=== PATIENT | male | born 1975 | race Caucasian/White ===

== ENCOUNTER 2019-10-24 11:01 | Outpatient (CLI) | payer BC, SELFPAY ==
[2019-10-24 11:46] LABS: Alanine Aminotransferase 40 U/L (4-50); Alkaline Phosphatase 42 U/L (38-126); Aspartate Amino Transferase 35 U/L (17-59); Bilirubin,Total 0.5 mg/dL (0.2-1.3); Blood Urea Nitrogen 18 mg/dL (9-20); Calcium 9.4 mg/dL (8.4-10.2); Carbon Dioxide 26 mmol/L (22-30); Chloride 103 mmol/L (98-107); Cholesterol 174 mg/dL (0-200); Estimated Glomerular Filt Rate > 60; Glucose 113 mg/dL (75-110); HDL Direct 46 mg/dL; Sodium 139 mmol/L (137-145); Triglycerides 233 mg/dL (<150)
[2019-10-24 11:57] LABS: LDL Cholesterol Direct 79 mg/dL
== END 2019-10-24 11:02 | disposition home or self-care (01) ==
LOC: ANHLAB 11:04
PROVIDERS: PCP Family Medicine; Visit Provider Internal Medicine Cardiovascular Disease
DX: R79.89 Other specified abnormal findings of blood chemistry (principal); E78.2 Mixed hyperlipidemia
CPT/HCPCS: 36415; 80053; 80061

== ENCOUNTER 2020-10-03 02:52 | Inpatient (IN) | payer BC, SELFPAY ==
[2020-10-03] VITALS (8 sets, daily range): BP systolic 121–141; BP diastolic 71–94; PULSE 88–100; RESP 12–20; TEMP 35.9–37.2; O2SAT 94–100; BMI 28.8
--- NOTE | ~2020-10-03 | XR_ITS ---
EXAMINATION: XR sm bowel follow through DATE: 10/05/2020 14:30 INDICATION: Small bowel obstruction versus enteritis TECHNIQUE: Oral contrast was administered, and sequential radiographs of the abdomen were obtained un til oral contrast was noted to be in the proximal colon. Spot fluoroscopic images of the small bowel were obtained. Fluoroscopy exposure time was 1.1 minutes. The DAP for this procedure was 3.9 Gycm2. COMPARISON: None. FINDINGS: Transit time from the stomach to proximal colon was approximately 90 minutes. The proximal and mid small bowel is mildly dilated. The distal small bowel is normal in caliber. Terminal ileum is normal. No tethering or abnormal mass effect observed upon the small bowel with real-time fluorosco py. IMPRESSION: 1. Mildly dilated proximal small bowel with normal caliber distal small bowel suggestive of partial o bstruction. Reviewed, dictated and finalized at location A. IMPRESSION: 1. Mildly dilated proximal small bowel with normal caliber distal small bowel s uggestive of partial obstruction.
--- NOTE | ~2020-10-03 | XR_ITS ---
EXAMINATION: XR abdomen obstructive series DATE: 10/04/2020 06:19 INDICATION: Partial small bowel obstruction TECHNIQUE: Frontal supine and upright views of the abdomen were obtained. COMPARISON: CT dated 10/03/2020 FINDINGS: There is a single mildly dilated gas-filled loop of small bowel in the left abdomen with gas scattere d throughout multiple additional nondilated loops of small bowel in the mid and right abdomen. There is also a small amount of gas scattered throughout the colon. No free intraperitoneal gas. Lung bases are clear. Heart size is normal. IMPRESSION: 1. Single mildly dilated loops of gas-filled small bowel in the left abdomen consistent with improvi ng ileus versus less likely improving small bowel obstruction. Reviewed, dictated and finalized at location A. IMPRESSION: 1. Single mildly dilated loops of gas-filled small bowel in the left abdomen c onsistent with improving ileus versus less likely improving small bowel obstruc tion.
--- NOTE | ~2020-10-03 | CT_ITS ---
EXAMINATION: CT abdomen pelvis w con DATE: 10/03/2020 04:19 INDICATION: Abdominal pain TECHNIQUE: Computed tomography (CT) of the abdomen and pelvis was performed with 100 cc Omnipaque 350 intravenous contrast. The dose-length product was 1192.44 mGy-cm. Automated exposure control and ite rative reconstruction technique were employed. COMPARISON: CT dated 08/15/2012. FINDINGS: Dependent atelectasis right lower lobe. Otherwise, lung bases unremarkable. Heart size norm al. No significant pleural or pericardial effusion. No significant vascular abnormality. No lymphaden opathy. Fatty infiltration of the liver. The spleen, pancreas, adrenal glands are unremarkable. There is a sm all left renal cyst. Nonobstructing right nephrolithiasis. There is small bowel obstruction with transition in the right lower quadrant. Exact transition site n ot identified. There is interloop fluid. No evidence for bowel perforation. The spleen, pancreas, adrenal glands are unremarkable. IMPRESSION: 1. Small bowel obstruction with transition in the right lower quadrant. Interloop fluid is identified , although no evidence for perforation. 2: Hepatic steatosis. 3: Nonobstructing right nephrolithiasis. Reviewed, dictated and finalized at location B. IMPRESSION: 1. Small bowel obstruction with transition in the right lower quadrant. Interlo op fluid is identified, although no evidence for perforation. 2: Hepatic steatosis. 3: Nonobstructing right nephrolithiasis.
--- NOTE | ~2020-10-03 | XR_ITS ---
XR abdomen obstructive series 10/05/2020 11:22 Indication: Follow-up small bowel dilation Procedure: Supine and upright views of the abdomen Comparison: 12/04/2020 Findings: There are mildly dilated small bowel loops in the left upper abdomen. The remainder of the bowel is decompressed. No abnormal calcifications. No significant bone or joint abnormality. Impression: 1: Dilated small bowel left upper abdomen with air-fluid levels, ileus versus partial obstruction. Reviewed, dictated and finalized at location B. Impression: 1: Dilated small bowel left upper abdomen with air-fluid levels, ileus versus p artial obstruction.
--- NOTE | 2020-10-03 03:14 | ED.ABDPAIN ---
HPI - Abdominal Pain General Chief Complaint: Abdominal Pain Stated Complaint: abd pain Time Seen by Provider: 10/03/20 03:13 Source: patient Mode of arrival: ambulatory Limitations: no limitations History of Present Illness HPI narrative: Patient is a 44-year-old male complaining of abdominal pain, diffuse, 8 out of 10, dull, nonradiating accompanied by nausea, vomiting, diarrhea that started 3 days ago. Patient describes his vomitus is nonbilious nonbloody. His diarrhea is loose watery, nonbloody. Patient denies any fever or chills. Patient denies any chest pain or shortness of breath. Related Data Allergies Allergy/AdvReac Type Severity Reaction Status Date / Time No Known Allergies Allergy Verified 10/03/20 03:24 Review of Systems Review of Systems: All systems reviewed & are unremarkable except as noted in HPI and below Constitutional: Constitutional: Denies body ache(s), Denies chills, Denies excessive sweating, Denies fatigue, Denies fever(s), Denies headache(s), Denies lethargy, Denies malaise, Denies weakness and Denies weight loss Eyes: Eyes: Denies blurry vision, Denies change in vision and Denies loss of vision ENT: Denies dizziness, Denies ear discharge, Denies headache(s), Denies lip swelling, Denies epistaxis, Denies nasal congestion, Denies neck pain, Denies throat swelling and Denies tongue swelling Cardiovascular: Cardiovascular: Denies chest pain, Denies chest pain at rest, Denies chest pain with activity, Denies diaphoresis, Denies rapid heart rate, Denies edema, Denies irregular heart rhythm, Denies lightheadedness, Denies palpitations, Denies dyspnea and Denies dyspnea on exertion Respiratory: Respiratory: Denies chest congestion, Denies cough, Denies hemoptysis, Denies dyspnea and Denies dyspnea on exertion Gastrointestinal: Gastrointestinal: Denies melena, Denies hematochezia and Denies hematemesis Musculoskeletal: Musculoskeletal: Denies abnormal gait, Denies deformity, Denies joint swelling, Denies limited range of motion, Denies neck pain and Denies numbness Neurologic: Denies Abnormal speech present, Denies abnormal gait, Denies confusion, Denies dizziness, Denies headache(s), Denies focal weakness, Denies loss of vision, Denies numbness, Denies Other visual disturbances, Denies Sensory deficit (Neuro) and Denies weakness Psychiatric: Psychiatric: Denies confusion, Denies depression, Denies auditory hallucinations, Denies homicidal ideation and Denies suicidal ideation Endocrine: Endocrine: Denies cold intolerance, Denies excessive sweating, Denies fatigue, Denies heat intolerance and Denies palpitations Hematologic/Lymphatic: Hematologic/Lymphatic: Denies easy bleeding and Denies easy bruising Allergic/Immunologic: Allergic/Immunologic: Denies lip swelling, Denies throat swelling and Denies tongue swelling PMFSH Past Medical History Medical History BMI 34.0-34.9,adult Cholecystectomy planned Family History Family History Father Hypertension Family history of elevated blood lipids Family history of diabetes mellitus in first degree relative Diabetes mellitus Family history of hypercholesterolemia Mother Family history of elevated blood lipids Family history of hypercholesterolemia COVID-19 Other Cerebrovascular accident Family history of cardiovascular disease Social History Social History Smoking status: Never smoker Second hand tobacco smoke exposure: No Alcohol intake: current Substance use: never Substance use type: does not use 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
[2020-10-03] MEDS: SODIUM CHLORIDE 0.9% IV 1,000 ML 999 ML IV CONT (03:26)
[2020-10-03 03:39] LABS: Basophils Percent Auto 0.3 % (0.2-1.2); Eosinophils Absolute Auto 0.2 K/mm3 (0-0.3); Eosinophils Percent Auto 2.3 % (0-4.4); Hematocrit 46.1 % (42.0-52.0); Hemoglobin 15.8 g/dL (14.0-18.0); Immature Granulocyte Absolute 0.03 K/mm3 (0.00-0.031); Immature Granulocyte Percent A 0.3 % (0-0.5); Lymphocytes Absolute Auto 1.42 K/mm3 (0.9-3.2); Lymphocytes Percent Auto 16.1 % (18.3-44.2); Mean Corpuscular HGB Conc 34.3 g/dl (32-36); Mean Corpuscular Hemoglobin 31.6 pg (26-34); Mean Corpuscular Volume 92.2 fl (80-100); Mean Platelet Volume 9.7 fl (7.4-10.4); Monocytes Absolute Auto 0.9 K/mm3 (0.1-0.6); Monocytes Percent Auto 10.4 % (2.6-8.5); Neutrophils Absolute Auto 6.2 K/mm3 (1.3-6.7); Neutrophils Percent Auto 70.6 % (45.5-73.1); Platelet Count Result 350 k/mm3 (150-375); Red Cell Distribution Width 12.3 % (11.5-14.5); White Blood Count 8.8 K/mm3 (4.5-10.0)
[2020-10-03 03:48] LABS: Add Urine Microscopic? YES; Appearance Urine Cloudy (Clear); Bacteria Urine Trace /hpf; Bilirubin Urine Negative (Negative); Blood Urine Negative (Negative); Color Urine Yellow (Yellow); Glucose Urine UA Negative (Negative); Ketones Urine Negative (Negative); Leukocyte Esterase Ur Negative LEU/UL (Negative); Mucus Urine Heavy /lpf; Nitrate Urine Negative (Negative); Protein Urine 1+ mg/dL (Negative); RBC Urine 0-2 /hpf (0-2); Specific Grav Ur 1.027 (1.001-1.035); Squamous Epithelial Cell Urine Occasional /hpf (Few)
[2020-10-03 04:00] LABS: Albumin Level 4.8 g/dL (3.5-5.1); Alkaline Phosphatase 46 U/L (38-126); Aspartate Amino Transferase 24 U/L (17-59); Bilirubin,Total 0.6 mg/dL (0.2-1.3); Blood Urea Nitrogen 19 mg/dL (9-20); Carbon Dioxide 25 mmol/L (22-30); Estimated CRCL calculation 85 ml/min; Estimated Glomerular Filt Rate > 60; Glucose 150 mg/dL (75-110)
[2020-10-03 04:06] LABS: Alanine Aminotransferase 28 U/L (4-50); Anion Gap 12 mmol/L (8-16); Calcium 9.6 mg/dL (8.4-10.2); Chloride 105 mmol/L (98-107); Lipase 55 U/L (23-300); Potassium 3.7 mmol/L (3.4-5.0); Sodium 142 mmol/L (137-145)
[2020-10-03] MEDS: LACTATED RINGERS 1,000 ML 125 ML IV CONT ×3 (06:29→23:13)
[2020-10-03] MEDS: ONDANSETRON INJ 4 MG/2 ML VIAL IV PUSH ×3 (06:32→17:46)
[2020-10-03] MEDS: KETOROLAC 30 MG/ML VIAL (*BKC) IV PUSH (06:32)
--- NOTE | 2020-10-03 08:00 | ADMGEN ---
This patient, Florentin Garcia, was admitted to 2 Medical Room 253-. Patient/family oriented to hospital policies and general routines including ID bracelet, bed and alarms, visiting hours, pain management, procedures, bathroom and other care routines, personal items, smoking policy, room service/diet, and visiting hours. Information on how to activate the Rapid Response Team has been discussed. Patient/Family are encouraged to report perceived risks to care and to ask questions if they do not understand what they are told or what they should do.
--- NOTE | 2020-10-03 09:22 | PM.CNGS ---
Assessment and Plan Assessment and plan (1) Partial small bowel obstruction: Code(s): K56.600 - Partial intestinal obstruction, unspecified as to cause Status: Acute Assessment and Plan: CT scan reviewed and discussed with the patient in detail. He has evidence of a small bowel obstruction with interloop fluid noted and no evidence of perforation. His only history of abdominal surgery is a laparoscopic cholecystectomy with umbilical hernia repair in 2019. He has no history of small bowel obstructions in the past. Etiology for this is unclear yet at this time. One possibility could be that this is more of a food bolus from the amount of peanuts he ate prior to the onset of symptoms, although the diarrhea following this without much improvement in symptoms makes this seem less likely. Also, this could be more related to gastroenteritis with the recent complaints of diarrhea. It seems less likely for this to be caused by intraabdominal adhesions considering his surgical history. For now, we will manage this conservatively and closely monitor him. He is still having some nausea, abdominal pain, and bloating, but no vomiting since yesterday. I deferred NG tube placement at this time, but discussed with the patient that he may need this if his nausea persists/worsens or he begins vomiting. Continue bowel rest, IV fluids, antiemetics, and analgesics. I added IV Tylenol for more mild pain, which is more of what he is experiencing now. I encouraged him to get up and walk around the room and in the halls as much as possible. Will give a Dulcolax suppository this morning as well. Will consider a Gastrografin small bowel follow through to further assess the possible small bowel obstruction in the next 1-2 days, depending on how he progresses. We will repeat abdominal films tomorrow morning and continue to monitor with serial abdominal exams. Thank you for allowing us to see the patient in consultation and we will continue to follow along with you. (2) Hypertension: Code(s): I10 - Essential (primary) hypertension Status: Acute (3) Obesity (BMI 30-39.9): Code(s): E66.9 - Obesity, unspecified Status: Acute (4) Hyperlipidemia: Code(s): E78.5 - Hyperlipidemia, unspecified Status: Acute Additional Plan I have discussed the patient's case and plan of care with Dr. Deleon. History of Present Illness Consult details Consult date: 10/03/20 Reason for consult: other ( Possible partial small-bowel obstruction) Requesting physician: Terry Mckinney MD Narrative: This is a 44-year-old male who presented to the emergency department early this morning with complaints abdominal pain, vomiting, and diarrhea. He reports having a gradual onset of mild lower abdominal pain early Thursday morning. He then developed diarrhea throughout the day and then developed vomiting. He reports his stools were loose and yellow in color, no hematochezia or melena. His vomiting appeared to be bilious. This continued through the day yesterday without any improvement. He also reports associated chills with vomiting, and bloating. He attempted to take a suppository last night after the diarrhea started to resolve. He had a more formed bowel movement after the suppository, but this was small. Since then he has not moved his bowels and has had minimal flatus. Due to the continued pain he presented to the ER for further evaluation. CT scan of the abdomen pelvis showed a small bowel obstruction with interloop fluid, but no perforation. Labs were unremarkable. The patient was admitted to the hospitalist service and made NPO. He was started on IV fluids and analgesics. He received a dose of Toradol in the ER, which improved his pain. Today, he reports his abdominal pain is improved slightly, but he is still feeling nauseated and bloated. No vomiting since yesterday. He denies ever having a bowel obstruction in the past. His only abdominal surgery wa
[2020-10-03] MEDS: BISACODYL 10 MG SUPPOSITORY RECTAL (10:04)
--- NOTE | 2020-10-03 16:03 | PM.IMHP ---
H&P: HPI History of Present Illness Date/Time: 10/03/20 16:03 patient is a 44-year-old male with no significant past medical history other than lap choly for cholecystitis and no other open abdominal surgery, he presented emergency department with complaint abdominal pain nausea or vomiting and diarrhea 1 days prior to coming to emergency department patient had a CT scan of abdomen showed:1. Small bowel obstruction with transition in the right lower quadrant. Interloop fluid is identified, although no evidence for perforation. 2: Hepatic steatosis. 3: Nonobstructing right nephrolithiasis. CT scan is suspicious or post small-bowel obstruction patient is clinically stable he has been having diarrhea currently no vomiting. Patient is seen by surgical service recommending conservative management and patient does not require NG tube, suspect most likely secondary to large amount of peanut patient had ate may have clogged intestine resulting in abdominal discomfort and appears to have a small-bowel obstruction, will give the patient NPO will continue to monitor and further recommendation to follow Chief Complaint: Abdominal pain Review of Systems Review of Systems: All systems reviewed & are unremarkable except as noted in HPI and below PMFSH Past Medical History Medical History (Updated 10/03/20 @ 09:45 by ERIK Kamara) BMI 34.0-34.9,adult Fatty liver Hyperlipidemia Hypertension History with a negative exercise stress test in 2019. Hypertriglyceridemia Pulmonary hypertension Echocardiogram in 2019 showed mild pulmonary hypertension, EF height 69%, and mild LVH. Surgical History Surgical History History of laparoscopic cholecystectomy 02/2019 History of umbilical hernia repair umbilical hernia repair during laparoscopic cholecystectomy Family History Family History Father Hypertension Family history of elevated blood lipids Family history of diabetes mellitus in first degree relative Diabetes mellitus Family history of hypercholesterolemia Mother Family history of elevated blood lipids Family history of hypercholesterolemia COVID-19 Other Cerebrovascular accident Family history of cardiovascular disease Social History Social History Smoking status: Never smoker Second hand tobacco smoke exposure: No Alcohol intake: current Drinks per week: 1 Substance use: never Substance use type: does not use Living arrangements: with family Additional living arrangements comments: With his partner Occupation/Education: occupation 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 Gender identity (if verbalized by the patient): Male Sexual Orientation (if Verbalized by the Patient): Lesbian, [place], or Homosexual Spiritual care concerns: No Meds Home Medications and Allergies Home Medications Medication Instructions Recorded Confirmed Type fenofibrate nanocrystallized 145 145 mg PO DAILY #30 tablet 07/15/19 10/03/20 Rx mg tablet icosapent ethyl 1 gram capsule 2 gm PO BID #60 cap 07/15/19 10/03/20 Rx metoprolol succinate 25 mg 25 mg PO DAILY #30 tablet 07/15/19 10/03/20 Rx tablet,extended release 24 hr rosuvastatin 20 mg tablet 20 mg PO DAILY #90 tablet 10/03/20 10/03/20 Rx Allergies Allergy/AdvReac Type Severity Reaction Status Date / Time No Known Allergies Allergy Verified 10/03/20 09:23 Vital Signs Vital Signs - 24 hr 10/03/20 03:03 10/03/20 03:27 10/03/20 04:34 Temperature 98.1 F 98.9 F Pulse Rate 96 92 91 Respiratory Rate 16 16 18 Blood Pressure 141/81 H 139/94 H 121/79 Pulse Oximetry 99 96 96 10/03/20 06:39 10/03/20 07:42 10/03/20 14:00 Temperature 96.6 F L Pulse Rate 88 92 98 Respiratory Rate 18 12 20 Blood Pressure 126/81 127/83 136/88 Pulse Oximetry 97 99 100
[2020-10-04 05:49] VITALS: BP 122/86; PULSE 90; RESP 18; TEMP 36.6; O2SAT 98
[2020-10-04] MEDS: ONDANSETRON INJ 4 MG/2 ML VIAL IV PUSH ×2 (05:51→22:40)
[2020-10-04 05:52] LABS: Alanine Aminotransferase 24 U/L (4-50); Albumin Level 3.7 g/dL (3.5-5.1); Alkaline Phosphatase 36 U/L (38-126); Anion Gap 9 mmol/L (8-16); Aspartate Amino Transferase 27 U/L (17-59); Bilirubin,Total 0.6 mg/dL (0.2-1.3); Blood Urea Nitrogen 18 mg/dL (9-20); Calcium 8.7 mg/dL (8.4-10.2); Carbon Dioxide 25 mmol/L (22-30); Chloride 109 mmol/L (98-107); Estimated CRCL calculation 79 ml/min; Estimated Glomerular Filt Rate > 60; Glucose 109 mg/dL (75-110); Magnesium 1.9 mg/dL (1.6-2.3); Potassium 3.9 mmol/L (3.4-5.0); Sodium 143 mmol/L (137-145)
[2020-10-04 05:54] LABS: Hematocrit 38.8 % (42.0-52.0); Hemoglobin 12.8 g/dL (14.0-18.0); Mean Corpuscular Hemoglobin 30.6 pg (26-34); Mean Corpuscular Volume 92.8 fl (80-100); Mean Platelet Volume 9.5 fl (7.4-10.4); Platelet Count Result 247 k/mm3 (150-375); Red Blood Count 4.18 M/mm3 (4.6-6.20); Red Cell Distribution Width 12.1 % (11.5-14.5); White Blood Count 3.9 K/mm3 (4.5-10.0)
--- NOTE | 2020-10-04 08:00 | PC.NURSE ---
Dr Delgado notified of holding am meds due to pt currently npo.
[2020-10-04] MEDS: LACTATED RINGERS 1,000 ML 125 ML IV CONT ×3 (08:52→22:41)
--- NOTE | 2020-10-04 09:02 | PM.PNGS ---
Progress Note: A&P Assessment and Plan (1) Partial small bowel obstruction: Code(s): K56.600 - Partial intestinal obstruction, unspecified as to cause Status: Acute Assessment and Plan: Abdominal films this morning showed a single mildly dilated loop of gas-filled small bowel, much improved. This appears to be more likely an ileus. He continues to have diarrhea. Will collect stool studies today. Will start him on clear liquids. If he is unable to tolerate liquids, we may need to consider a Gastrografin small bowel follow-through. May advance to full liquids later today if he continues to do well. Encouraged to continue walking the halls during the day. Additional Plan I have discussed the plan of care with Dr. Deleon. Subjective Subjective Date/Time Seen: 10/04/20 09:02 Patient reports: feels better, pain is less, voiding w/o difficulty, flatus, diarrhea, nausea (Only with walking) and afebrile Interval history: Patient seen this morning and feels his bloating and nausea is better. He is still having nausea when getting up to walk, but no episodes of vomiting since admission. He reports a small formed bowel movement after the suppository yesterday, but since then he has had multiple episodes of liquid diarrhea. Still denies any blood in stool. He denies any abdominal pain, but reports his lower abdomen feels sore. No other complaints at this time. Review of Systems Review of Systems: All systems reviewed & are unremarkable except as noted in HPI and below Gastrointestinal: Gastrointestinal: Reports as per HPI and Reports no additional gastrointestinal complaints Exam Const: General: comfortable, no acute distress and alert Resp: Effort & Inspection: no respiratory distress Auscultation: clear to auscultation bilaterally Cardio: Rate: regular rate Rhythm: regular rhythm GI: Inspection: obesity, no visible herniation and other (mildly distended) GI Palp: Yes Soft to palpation, Yes Tenderness to palpation present (GI) (mild tenderness in lower abd, much improved), No Guarding due to palpation present (GI) and No Rebound tenderness present Auscultation: normal bowel sounds Neuro: General: moves all extremities and no focal motor deficits Psych: Mental Status: mental status grossly normal Judgement: Good judgement present (Psych) Objective Data Vital Signs Vital Signs: Vital Signs - 24 hr 10/03/20 14:00 10/03/20 21:24 10/03/20 23:39 Temperature 96.6 F L 97.6 F Pulse Rate 98 100 Respiratory Rate 20 18 Blood Pressure 136/88 125/71 Pulse Oximetry 100 98 94 10/04/20 05:49 Temperature 97.8 F Pulse Rate 90 Respiratory Rate 18 Blood Pressure 122/86 Pulse Oximetry 98 Intake/Output Intake/Output: Intake & Output 10/01/20 10/02/20 10/03/20 10/04/20 23:59 23:59 23:59 23:59 Intake Total 3202 1100 Output Total 700 600 Balance 2502 500 Meds/Results Medications: Active Medications Generic Name Dose Route Start Last Admin Trade Name Freq PRN Reason Stop Dose Admin Fenofibrate 145 mg 10/04/20 09:00 Fenofibrate Nanocrystallized 145 Mg Tablet PO DAILY MAMIE Fish Oil 2 gm 10/03/20 17:00 10/03/20 17:40 [place] 3 Polyunsat Fatty Acids 1 Gm Cap PO Not Given BID MAMIE Lactated Ringer's 1,000 mls @ 125 mls/hr 10/03/20 05:05 10/04/20 08:52 Lr - Lactated Ringers Iv IV CONT 125 mls/hr .Q8H MAMIE Administration Acetaminophen 1,000 mg in 100 mls @ 400 mls/hr 10/03/20 09:37 10/04/20 06:06 Ofirmev 1,000 Mg Ivpb IVPB 10/04/20 09:38 Infused Q6H PRN Infusion Pain Rated 4-6 Metoprolol Succinate 25 mg 10/04/20 09:00 Metoprolol Succinate Ext Rel 25 Mg Tabcr PO DAILY [facility] Morphine Sulfate 2 mg 10/03/20 05:11 Morphine Sulfate (*Crx) 2 Mg/Ml Inj IV PUSH Q4HR PRN Pain Rated 7-10 Ondansetron HCl 4 mg 10/03/20 05:05 10/04/20 05:51 Ondansetron Inj 4 Mg/2 Ml Vial IV PUSH 4 mg Q4H PRN Administration Nausea
--- NOTE | 2020-10-04 13:11 | PM.IMPN ---
Progress Note: A&P Assessment and Plan (1) Partial small bowel obstruction: Code(s): K56.600 - Partial intestinal obstruction, unspecified as to cause Status: Acute Assessment and Plan: 10/04/20 13:11 10/03 patient is a 44-year-old male with no significant past medical history other than lap choly for cholecystitis and no other open abdominal surgery, he presented emergency department with complaint abdominal pain nausea or vomiting and diarrhea 1 days prior to coming to emergency department patient had a CT scan of abdomen showed:1. Small bowel obstruction with transition in the right lower quadrant. Interloop fluid is identified, although no evidence for perforation. 2: Hepatic steatosis. 3: Nonobstructing right nephrolithiasis. CT scan is suspicious or post small-bowel obstruction patient is clinically stable he has been having diarrhea currently no vomiting. Patient is seen by surgical service recommending conservative management and patient does not require NG tube, suspect most likely secondary to large amount of peanut patient had ate may have clogged intestine resulting in abdominal discomfort and appears to have a small-bowel obstruction, will give the patient NPO will continue to monitor and further recommendation to follow. 10/04 today patient had a x-ray of the abdomen showed Single mildly dilated loops of gas-filled small bowel in the left abdomen consistent with improving ileus versus less likely improving small bowel obstruction. Patient continue to have loose BM, no nausea or vomiting, seen by surgery service started the patient on clear liquid able to tolerate, will collect stools simple and further recommendation to follow, patient continued to ambulate along the hallways. Will reassess patient tomorrow and further recommendation to follow. (2) Hypertension: Code(s): I10 - Essential (primary) hypertension Status: Acute Assessment and Plan: Patient is on metoprolol 25 mg q.day currently NPO and his blood pressure is reasonably well controlled will continue to (3) Hyperlipidemia: Code(s): E78.5 - Hyperlipidemia, unspecified Status: Acute Assessment and Plan: Will resume patient's medication once patient is able to take p.o. Subjective Date/time seen: 10/04/20 13:11 10/03 patient is a 44-year-old male with no significant past medical history other than lap choly for cholecystitis and no other open abdominal surgery, he presented emergency department with complaint abdominal pain nausea or vomiting and diarrhea 1 days prior to coming to emergency department patient had a CT scan of abdomen showed:1. Small bowel obstruction with transition in the right lower quadrant. Interloop fluid is identified, although no evidence for perforation. 2: Hepatic steatosis. 3: Nonobstructing right nephrolithiasis. CT scan is suspicious or post small-bowel obstruction patient is clinically stable he has been having diarrhea currently no vomiting. Patient is seen by surgical service recommending conservative management and patient does not require NG tube, suspect most likely secondary to large amount of peanut patient had ate may have clogged intestine resulting in abdominal discomfort and appears to have a small-bowel obstruction, will give the patient NPO will continue to monitor and further recommendation to follow. 10/04 today patient had a x-ray of the abdomen showed Single mildly dilated loops of gas-filled small bowel in the left abdomen consistent with improving ileus versus less likely improving small bowel obstruction. Patient continue to have loose BM, no nausea or vomiting, seen by surgery service started the patient on clear liquid able to tolerate, will collect stools simple and further recommendation to follow, patient continued to ambulate along the hallways. Will reassess patient tomorrow and further recommendation to follow. Review of Systems Review of Systems: All systems rev
[2020-10-04 14:00] VITALS: BP 132/62; PULSE 99; RESP 18; TEMP 36.1; O2SAT 97
[2020-10-04 14:09] VITALS: PULSE 92
[2020-10-04] MEDS: FENOFIBRATE NANOCRYSTALLIZED 145 MG TABLET PO (14:09)
[2020-10-04] MEDS: ROSUVASTATIN 10 MG TABLET 20 MG PO (14:09)
[2020-10-04] MEDS: METOPROLOL SUCCINATE EXT REL 25 MG TABCR PO (14:09)
[2020-10-04] MEDS: OMEGA 3 POLYUNSAT FATTY ACIDS 1 GM CAP 2 GM PO (14:10)
--- NOTE | 2020-10-04 17:41 | PC.NURSE ---
Pt c/o upper abd pain and bloating after eating full liquids.
[2020-10-04] MEDS: PANTOPRAZOLE SODIUM IV 40 MG VIAL IV PUSH (17:52)
[2020-10-04 20:44] VITALS: BP 123/78; PULSE 93; RESP 18; TEMP 36.6; O2SAT 99
[2020-10-05 05:11] VITALS: BP 118/70; PULSE 80; RESP 18; TEMP 36.6; O2SAT 98
[2020-10-05 06:31] LABS: Hematocrit 37.1 % (42.0-52.0); Hemoglobin 12.4 g/dL (14.0-18.0); Mean Corpuscular HGB Conc 33.4 g/dl (32-36); Mean Corpuscular Hemoglobin 30.5 pg (26-34); Mean Corpuscular Volume 91.4 fl (80-100); Mean Platelet Volume 9.7 fl (7.4-10.4); Platelet Count Result 287 k/mm3 (150-375); Red Blood Count 4.06 M/mm3 (4.6-6.20); Red Cell Distribution Width 12.1 % (11.5-14.5); White Blood Count 4.1 K/mm3 (4.5-10.0)
[2020-10-05] MEDS: LACTATED RINGERS 1,000 ML 125 ML IV CONT ×2 (06:48→15:32)
[2020-10-05 07:14] LABS: Alanine Aminotransferase 25 U/L (4-50); Alkaline Phosphatase 35 U/L (38-126); Anion Gap 8 mmol/L (8-16); Aspartate Amino Transferase 30 U/L (17-59); Bilirubin,Total 0.3 mg/dL (0.2-1.3); Blood Urea Nitrogen 10 mg/dL (9-20); Calcium 8.8 mg/dL (8.4-10.2); Carbon Dioxide 25 mmol/L (22-30); Chloride 108 mmol/L (98-107); Estimated CRCL calculation 79 ml/min; Estimated Glomerular Filt Rate > 60; Glucose 119 mg/dL (75-110); Magnesium 1.8 mg/dL (1.6-2.3); Potassium 3.8 mmol/L (3.4-5.0); Sodium 141 mmol/L (137-145)
--- NOTE | 2020-10-05 11:12 | PM.PNGS ---
Progress Note: A&P Assessment and Plan (1) Partial small bowel obstruction: Code(s): K56.600 - Partial intestinal obstruction, unspecified as to cause Status: Acute Assessment and Plan: Abdominal films now are ordered to help try to sort out his apparent set back last night. If these show dilated loops of small bowel may consider small-bowel follow-through this afternoon. If it shows the normal bowel gas pattern consider moving him up to clear liquids again this afternoon at lunch. This appears to be more likely an ileus. He continues to have diarrhea/multiple loose stools so we have sent stool studies yesterday and these results are pending.. Await further studies. Encouraged to continue walking the halls during the day. His course most likely consist use consistent with gastroenteritis. Since he has had multiple stools again I doubt small bowel obstruction. One option may be if he is feeling well to send him home on full liquid diet through till Thursday with some Levaquin and Flagyl as antibiotic coverage for gastroenteritis until we get the stool studies back. He may also benefit by some p.o. pantoprazole until he feels better. Additional Plan I have discussed the plan of care with Dr. Delgado. Subjective Subjective Date/Time Seen: 10/05/20 11:12 The patient relates that prior to supper last evening after trying a full liquid lunch he had significant bloating and discomfort in his abdomen. Therefore, apparently the nurse called Dr. Chirinos after hours and his supper was held. He was made psychiatric arnp. again. He had IV fluids restarted, and he was given a dose of pantoprazole. He states now that through the night he still had bloating but no vomiting and no nausea. Then between 5:00 a.m. and 8:00 a.m. he had about 8 liquid stools. The 1st one was sort of blackish dark and that one was sent for C diff testing another stool testing. The following ones were liquidy, yellow, brown and no blood in them. Patient now feels somewhat better, less bloated, and has been up walking. He would be willing try clear liquids again if a follow-up x-ray does not show any problems. Review of Systems Review of Systems: All systems reviewed & are unremarkable except as noted in HPI and below Constitutional: Constitutional: Reports as per HPI, Reports chills (While vomiting), Denies fatigue and Denies fever(s) Eyes: Eyes: Reports no additional eye complaints and Denies change in vision ENT: Reports system reviewed and no additional complaints, except as documented and Denies dizziness Cardiovascular: Cardiovascular: Reports no additional cardiovascular complaints, Denies chest pain, Denies leg edema and Denies dyspnea Respiratory: Respiratory: Reports no additional respiratory complaints, Denies cough and Denies dyspnea Gastrointestinal: Gastrointestinal: Reports as per HPI, Reports no additional gastrointestinal complaints, Reports abdominal pain (Lower abdomen), Denies melena, Reports bloating, Denies hematochezia, Denies coffee ground emesis, Denies constipation, Reports diarrhea, Reports nausea, Reports vomiting (Bilious appearing) and Denies hematemesis Genitourinary: Genitourinary: Denies hematuria and Denies dysuria Musculoskeletal: Musculoskeletal: Denies abnormal gait, Denies deformity and Denies joint swelling Integumentary/Breasts: Skin/Breast: Denies wounds and Denies jaundice Comments: Research back into his chart reveals he did see his PCP in June of this year with a infection along the lateral border of his 1st toenail right great toe. He was placed on cephalexin for 10 days at that time and took all of that. This however is about 3 months ago so unlikely currently a cause of his possible C diff colitis or gastroenteritis. He has had no hand biotic since then had the only the 1 course of antibiotics. Neurologic: Reports system reviewed and no additional complaints, except as documented, Denies abnormal gait, Denies dizzin
[2020-10-05 14:00] VITALS: BP 136/83; PULSE 88; RESP 20; TEMP 36.1; O2SAT 94
--- NOTE | 2020-10-05 16:02 | PM.IMPN ---
Progress Note: A&P Assessment and Plan (1) Partial small bowel obstruction: Code(s): K56.600 - Partial intestinal obstruction, unspecified as to cause Status: Acute Assessment and Plan: 10/05/20 16:02 10/03 patient is a 44-year-old male with no significant past medical history other than lap choly for cholecystitis and no other open abdominal surgery, he presented emergency department with complaint abdominal pain nausea or vomiting and diarrhea 1 days prior to coming to emergency department patient had a CT scan of abdomen showed:1. Small bowel obstruction with transition in the right lower quadrant. Interloop fluid is identified, although no evidence for perforation. 2: Hepatic steatosis. 3: Nonobstructing right nephrolithiasis. CT scan is suspicious or post small-bowel obstruction patient is clinically stable he has been having diarrhea currently no vomiting. Patient is seen by surgical service recommending conservative management and patient does not require NG tube, suspect most likely secondary to large amount of peanut patient had ate may have clogged intestine resulting in abdominal discomfort and appears to have a small-bowel obstruction, will give the patient NPO will continue to monitor and further recommendation to follow. 10/04 today patient had a x-ray of the abdomen showed Single mildly dilated loops of gas-filled small bowel in the left abdomen consistent with improving ileus versus less likely improving small bowel obstruction. Patient continue to have loose BM, no nausea or vomiting, seen by surgery service started the patient on clear liquid able to tolerate, will collect stools simple and further recommendation to follow, patient continued to ambulate along the hallways. Will reassess patient tomorrow and further recommendation to follow. 10/05 last night patient fell bloated there was a concern for obstruction patient was placed NPO today patient was seen by surgery service ordered small-bowel series and it showed Mildly dilated proximal small bowel with normal caliber distal small bowel suggestive of partial obstruction. Plan is to monitor patient on clear liquid until stool test return, will continue present management. (2) Hypertension: Code(s): I10 - Essential (primary) hypertension Status: Acute Assessment and Plan: Patient is on metoprolol 25 mg q.day currently NPO and his blood pressure is reasonably well controlled will continue to (3) Hyperlipidemia: Code(s): E78.5 - Hyperlipidemia, unspecified Status: Acute Assessment and Plan: Will resume patient's medication once patient is able to take p.o. Subjective Date/time seen: 10/05/20 16:02 10/03 patient is a 44-year-old male with no significant past medical history other than lap choly for cholecystitis and no other open abdominal surgery, he presented emergency department with complaint abdominal pain nausea or vomiting and diarrhea 1 days prior to coming to emergency department patient had a CT scan of abdomen showed:1. Small bowel obstruction with transition in the right lower quadrant. Interloop fluid is identified, although no evidence for perforation. 2: Hepatic steatosis. 3: Nonobstructing right nephrolithiasis. CT scan is suspicious or post small-bowel obstruction patient is clinically stable he has been having diarrhea currently no vomiting. Patient is seen by surgical service recommending conservative management and patient does not require NG tube, suspect most likely secondary to large amount of peanut patient had ate may have clogged intestine resulting in abdominal discomfort and appears to have a small-bowel obstruction, will give the patient NPO will continue to monitor and further recommendation to follow. 10/04 today patient had a x-ray of the abdomen showed Single mildly dilated loops of gas-filled small bowel in the left abdomen consistent with improving ileus versus less likely improving small bowel
[2020-10-05] MEDS: levoFLOXacin 500 MG TABLET PO (16:30)
[2020-10-05 21:05] VITALS: BP 152/98; PULSE 90; RESP 16; TEMP 36.4; O2SAT 99
[2020-10-05 21:54] VITALS: BP 144/87
[2020-10-06] MEDS: LACTATED RINGERS 1,000 ML 75 ML IV CONT (02:02)
[2020-10-06 05:37] VITALS: BP 135/80; PULSE 79; RESP 16; TEMP 36.1; O2SAT 100
[2020-10-06 05:51] LABS: Hematocrit 37.1 % (42.0-52.0); Hemoglobin 12.8 g/dL (14.0-18.0); Mean Corpuscular HGB Conc 34.5 g/dl (32-36); Mean Corpuscular Hemoglobin 31.2 pg (26-34); Mean Corpuscular Volume 90.5 fl (80-100); Mean Platelet Volume 9.4 fl (7.4-10.4); Platelet Count Result 306 k/mm3 (150-375); Red Cell Distribution Width 11.9 % (11.5-14.5); White Blood Count 3.4 K/mm3 (4.5-10.0)
[2020-10-06 06:12] LABS: Alanine Aminotransferase 33 U/L (4-50); Albumin Level 4.2 g/dL (3.5-5.1); Alkaline Phosphatase 32 U/L (38-126); Anion Gap 8 mmol/L (8-16); Aspartate Amino Transferase 38 U/L (17-59); Bilirubin,Total 0.3 mg/dL (0.2-1.3); Blood Urea Nitrogen 9 mg/dL (9-20); Calcium 8.8 mg/dL (8.4-10.2); Carbon Dioxide 25 mmol/L (22-30); Chloride 109 mmol/L (98-107); Estimated CRCL calculation 87 ml/min; Estimated Glomerular Filt Rate > 60; Glucose 104 mg/dL (75-110); Magnesium 1.9 mg/dL (1.6-2.3); Potassium 3.6 mmol/L (3.4-5.0); Sodium 142 mmol/L (137-145)
--- NOTE | 2020-10-06 09:04 | PM.PNGS ---
Progress Note: A&P Assessment and Plan (1) Partial small bowel obstruction: Code(s): K56.600 - Partial intestinal obstruction, unspecified as to cause Status: Acute Assessment and Plan: seems to be resolved. Probably an intraluminal blockage from large amount of peanuts being eaten prior to onset is the cause. Patient having quite a few stools after his small bowel series. Most of the stool studies are back and are negative. E coli, Campylobacter, and salmonella are still pending. Okay to discharge this afternoon from our perspective. Would not treat with further antibiotics unless stool cultures are positive. This can be followed up as an outpatient. Will advance to low fiber diet. Can be on regular solid food at home. Could take Imodium for diarrhea if persists after discharge. Subjective Subjective Date/Time Seen: 10/06/20 09:04 Patient reports: feels better, pain is less ( no further abdominal pain) and diarrhea (Multiple BMs after Gastrografin upper GI small bowel series) Interval history: wants to go home Review of Systems Review of Systems: All systems reviewed & are unremarkable except as noted in HPI and below Constitutional: Constitutional: Denies chills, Denies fever(s), Denies headache(s), Reports increased appetite and Denies night sweats Gastrointestinal: Gastrointestinal: Reports as per HPI, Denies abdominal pain, Denies GI cramping, Denies heartburn, Reports loose stools, Denies nausea and Denies vomiting Neurologic: Denies confusion and Denies headache(s) Exam Const: General: comfortable and no acute distress; No confusion Orientation/consciousness: patient oriented x3 and No confusion GI: Inspection: normal to inspection and non-distended GI Palp: Yes Soft to palpation, No Tenderness to palpation present (GI), No Guarding due to palpation present (GI) and No Rebound tenderness present Auscultation: normal bowel sounds Neuro: General: patient oriented x3, no focal motor deficits and No confusion Extrem: General: no calf tenderness and no edema Psych: Affect: normal affect Insight: Good insight present (Psych) Judgement: Good judgement present (Psych) Objective Data Vital Signs Vital Signs: Vital Signs - 24 hr 10/05/20 14:00 10/05/20 21:05 10/05/20 21:54 Temperature 36.1 C L 36.4 C L Pulse Rate 88 90 Respiratory Rate 20 16 Blood Pressure 136/83 152/98 H 144/87 H Pulse Oximetry 94 99 10/06/20 05:37 Temperature 36.1 C L Pulse Rate 79 Respiratory Rate 16 Blood Pressure 135/80 Pulse Oximetry 100 Intake/Output Intake/Output: Intake & Output 10/03/20 10/04/20 10/05/20 10/06/20 23:59 23:59 23:59 23:59 Intake Total 3202 4300 3940 400 Output Total 700 2050 2750 600 Balance 2502 2250 1190 -200 Meds/Results Medications: Active Medications Generic Name Dose Route Start Last Admin Trade Name Freq PRN Reason Stop Dose Admin Acetaminophen 650 mg 10/04/20 13:28 Acetaminophen 325 Mg Tablet PO Q6H PRN Mild Pain (1-3) or Fever Fenofibrate 145 mg 10/04/20 09:00 10/05/20 09:36 Fenofibrate Nanocrystallized 145 Mg Tablet PO Not Given DAILY MAMIE Fish Oil 2 gm 10/03/20 17:00 10/05/20 16:56 Canones 3 Polyunsat Fatty Acids 1 Gm Cap PO Not Given BID MAMIE Lactated Ringer's 1,000 mls @ 75 mls/hr 10/04/20 17:25 10/06/20 02:02 Lr - Lactated Ringers Iv IV CONT 75 mls/hr .[id number] MAMIE Administration Acetaminophen 1,000 mg in 100 mls @ 400 mls/hr 10/05/20 09:53 10/05/20 10:40 Ofirmev 1,000 Mg Ivpb IVPB 10/06/20 09:54 Infused Q6H PRN Infusion Pain Rated 4-6 Metoprolol Succinate 25 mg 10/04/20 09:00 10/05/20 09:36 Metoprolol Succinate Ext Rel 25 Mg Tabcr PO Not Given DAILY MAMIE Morphine Sulfate 2 mg 10/03/20 05:11 Morphine Sulfate (*Crx) 2 Mg/Ml Inj IV PUSH Q4HR PRN Pain Rated 7-10 Ondansetron HCl 4 mg 10/03/20 05:05 10/04/20 22:40 Ondansetron Inj 4 Mg/2 Ml Vial IV PUSH 4 m
[2020-10-06] MEDS: ROSUVASTATIN 10 MG TABLET 20 MG PO (09:06)
[2020-10-06 09:07] VITALS: PULSE 79
[2020-10-06] MEDS: POTASSIUM CHLORIDE 20 MEQ TABLET 40 MEQ PO (09:07)
[2020-10-06] MEDS: FENOFIBRATE NANOCRYSTALLIZED 145 MG TABLET PO (09:07)
[2020-10-06] MEDS: METOPROLOL SUCCINATE EXT REL 25 MG TABCR PO (09:07)
[2020-10-06 14:00] VITALS: BP 131/74; PULSE 78; RESP 22; TEMP 36.6; O2SAT 96
--- NOTE | 2020-10-06 14:13 | PM.DS ---
DS: Admitting Diagnosis Admitting Diagnosis Admitting Diagnosis: Chief Complaint: Abdominal pain DS: Discharge Diagnosis Discharge Diagnosis (1) Partial small bowel obstruction: Code(s): K56.600 - Partial intestinal obstruction, unspecified as to cause Status: Acute Assessment and Plan: patient is a 44-year-old male with no significant past medical history other than lap choly for cholecystitis and no other open abdominal surgery, he presented emergency department with complaint abdominal pain nausea or vomiting and diarrhea 1 days prior to coming to emergency department patient had a CT scan of abdomen showed:1. Small bowel obstruction with transition in the right lower quadrant. Interloop fluid is identified, although no evidence for perforation. 2: Hepatic steatosis. 3: Nonobstructing right nephrolithiasis. CT scan is suspicious or post small-bowel obstruction patient is clinically stable he has been having diarrhea currently no vomiting. Patient is seen by surgical service recommending conservative management and patient does not require NG tube, suspect most likely secondary to large amount of peanut patient had ate may have clogged intestine resulting in abdominal discomfort and appears to have a small-bowel obstruction, will give the patient NPO will continue to monitor and further recommendation to follow Chief Complaint: Abdominal pain (2) Hypertension: Code(s): I10 - Essential (primary) hypertension Status: Acute Assessment and Plan: Patient is on metoprolol 25 mg q.day currently NPO and his blood pressure is reasonably well controlled will continue to (3) Hyperlipidemia: Code(s): E78.5 - Hyperlipidemia, unspecified Status: Acute Assessment and Plan: Will resume patient's medication once patient is able to take p.o. DS: Summary Hospital Course Reason for hospitalization: patient is a 44-year-old male with no significant past medical history other than lap choly for cholecystitis and no other open abdominal surgery, he presented emergency department with complaint abdominal pain nausea or vomiting and diarrhea 1 days prior to coming to emergency department patient had a CT scan of abdomen showed:1. Small bowel obstruction with transition in the right lower quadrant. Interloop fluid is identified, although no evidence for perforation. 2: Hepatic steatosis. 3: Nonobstructing right nephrolithiasis. CT scan is suspicious or post small-bowel obstruction patient is clinically stable he has been having diarrhea currently no vomiting. Patient is seen by surgical service recommending conservative management and patient does not require NG tube, suspect most likely secondary to large amount of peanut patient had ate may have clogged intestine resulting in abdominal discomfort and appears to have a small-bowel obstruction, will give the patient NPO will continue to monitor and further recommendation to follow Chief Complaint: Abdominal pain Hospital Course: patient is a 44-year-old male with no significant past medical history other than lap choly for cholecystitis and no other open abdominal surgery, he presented emergency department with complaint abdominal pain nausea or vomiting and diarrhea 1 days prior to coming to emergency department patient had a CT scan of abdomen showed:1. Small bowel obstruction with transition in the right lower quadrant. Interloop fluid is identified, although no evidence for perforation. 2: Hepatic steatosis. 3: Nonobstructing right nephrolithiasis. CT scan is suspicious or post small-bowel obstruction patient is clinically stable he has been having diarrhea currently no vomiting. Patient is seen by surgical service recommending conservative management and patient does not require NG tube, suspect most likely secondary to large amount of peanut patient had ate may have clogged intestine resulting in abdominal discomfort and appears to have a small-bowel obstruction, will gi
== END 2020-10-06 14:56 | disposition home or self-care (01) | DRG 390 ==
LOC: ANHED 05:11 → ANH2MED 07:23
PROVIDERS: Admitting Provider Internal Medicine; Emergency Provider Emergency Medicine; PCP Family Medicine; Visit Provider Family Medicine
DX: K56.690 Other partial intestinal obstruction (principal); Z90.49 Acquired absence of other specified parts of digestive tract; I10 Essential (primary) hypertension; E78.5 Hyperlipidemia, unspecified; I27.20 Pulmonary hypertension, unspecified; N20.0 Calculus of kidney; K76.0 Fatty (change of) liver, not elsewhere classified
CPT/HCPCS: 36415; 74019; 74177; 74250; 80053; 81001; 83690; 83735; 85025; 85027; 87015; 87045; 87046; 87269; 87272; 87324; 87427; 96361; 96365; 96375; 96376; 99285; A9270; C9113; G0378; J0131; J1885; J2405; J7030; J7120; Q9967

== ENCOUNTER 2021-02-15 00:23 | Day surgery (SDC) | payer BC, SELFPAY ==
[2021-01-28 13:31] VITALS: BMI 33.5
[2021-02-15 07:45] VITALS: BP 123/83; PULSE 85; RESP 16; TEMP 36.2; O2SAT 99
[2021-02-15] MEDS: LACTATED RINGERS 1,000 ML 150 ML IV CONT (07:52)
--- NOTE | 2021-02-15 08:11 | WPDANESEPPF ---
Anes - Initial Pre Proc Eval Procedure: Operation Date: 02/15/21 08:30 Proposed Procedures p Screening Colonoscopy - Christofer Osuna MD Date/Time: 02/15/21 08:11 Surgeon: Christofer Osuna MD Pre Op Diagnosis: neoplasm screening Patient Data Age: 45 Gender: M Height: 1.73 m Weight: 99.3 kg Last Vital Signs Temp 36.2 C L 02/15/21 07:45 Pulse 85 02/15/21 07:45 Resp 16 02/15/21 07:45 BP 123/83 02/15/21 07:45 Pulse Ox 99 02/15/21 07:45 Allergies Allergy/AdvReac Type Severity Reaction Status Date / Time No Known Allergies Allergy Verified 02/15/21 07:44 Home Medications Medication Instructions Recorded Confirmed Type fenofibrate nanocrystallized 145 145 mg PO DAILY #30 tablet 07/15/19 02/15/21 Rx mg tablet icosapent ethyl 1 gram capsule 2 gm PO BID #60 cap 07/15/19 02/15/21 Rx metoprolol succinate 25 mg 25 mg PO DAILY #30 tablet 07/15/19 02/15/21 Rx tablet,extended release 24 hr rosuvastatin 20 mg tablet 20 mg PO DAILY #90 tablet 10/03/20 02/15/21 Rx Patient hx anesthesia problems: post op nausea/vomiting Family hx anesthesia problems: post op nausea/vomiting Results Review: All pre-operative results and documents have been reviewed as part of the pre-operative evaluation. [facility] Past Medical History Medical History BMI 34.0-34.9,adult Fatty liver Hyperlipidemia Hypertension History with a negative exercise stress test in 2019. Hypertriglyceridemia Pulmonary hypertension Echocardiogram in 2019 showed mild pulmonary hypertension, EF height 69%, and mild LVH. Surgical History Surgical History History of laparoscopic cholecystectomy 02/2019 History of umbilical hernia repair umbilical hernia repair during laparoscopic cholecystectomy Family History Family History Father Hypertension Family history of elevated blood lipids Family history of diabetes mellitus in first degree relative Diabetes mellitus Family history of hypercholesterolemia Mother Family history of elevated blood lipids Family history of hypercholesterolemia COVID-19 Sibling No problems noted. 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 Gender identity (if verbalized by the patient): Male Sexual Orientation (if Verbalized by the Patient): Lesbian, Mandujano, or Homosexual Spiritual care concerns: No Anes - Eval Final PreProcedure Day of Procedure 02/15/21 08:11 Patient weight: obese Heart: regular rate and rhythm Lungs: clear to auscultation Airway: Mallampati scale class II Neurological: alert and oriented Last oral intake: >/= 8 hours ASA classification: III Emergent: no Anesthetic plan: proceed Anesthesia type and monitoring: general GIVS and standard monitoring Results Review: All pre-operative results and documents have been reviewed as part of the pre-operative evaluation. Informed Consent: The patient's anesthetic plan and its attendant risks and benefits were discussed with the patient/family/POA. Questions were solicited and answers provided to the satisfaction of the patient/family/POA.
--- NOTE | 2021-02-15 08:28 | PM.HPGS ---
History of Present Illness History of Present Illness Consent: Risks, benefits, and alternatives have been discussed and questions answered. Patient agrees to proceed with procedure. Chief complaint: neoplasm screening Narrative: Florentin Garcia is a 45 year old male here for first screening colonoscopy Review of Systems Constitutional: Constitutional: Denies headache(s) and Denies weakness Eyes: Eyes: Denies blurry vision ENT: Reports Normal hearing present, Denies headache(s) and Denies neck pain Cardiovascular: Cardiovascular: Denies chest pain and Denies dyspnea Respiratory: Respiratory: Denies dyspnea Gastrointestinal: Gastrointestinal: Reports no additional gastrointestinal complaints Genitourinary: Genitourinary: Denies dysuria Musculoskeletal: Musculoskeletal: Denies neck pain Integumentary/Breasts: Skin/Breast: Denies dry skin Neurologic: Reports Normal hearing present, Denies headache(s) and Denies weakness Psychiatric: Psychiatric: Denies anxiety Endocrine: Endocrine: Denies change in body appearance Hematologic/Lymphatic: Hematologic/Lymphatic: Denies easy bleeding Allergic/Immunologic: Allergic/Immunologic: Denies urticaria PMF Past Medical History Medical History BMI 34.0-34.9,adult Fatty liver Hyperlipidemia Hypertension History with a negative exercise stress test in 2019. Hypertriglyceridemia Pulmonary hypertension Echocardiogram in 2019 showed mild pulmonary hypertension, EF height 69%, and mild LVH. Surgical History Surgical History History of laparoscopic cholecystectomy 02/2019 History of umbilical hernia repair umbilical hernia repair during laparoscopic cholecystectomy Family History Family History Father Hypertension Family history of elevated blood lipids Family history of diabetes mellitus in first degree relative Diabetes mellitus Family history of hypercholesterolemia Mother Family history of elevated blood lipids Family history of hypercholesterolemia COVID-19 Sibling No problems noted. 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 Gender identity (if verbalized by the patient): Male Sexual Orientation (if Verbalized by the Patient): Lesbian, Mandujano, or Homosexual Spiritual care concerns: No Meds Home Medications and Allergies Home Medications Medication Instructions Recorded Confirmed Type fenofibrate nanocrystallized 145 145 mg PO DAILY #30 tablet 07/15/19 02/15/21 Rx mg tablet icosapent ethyl 1 gram capsule 2 gm PO BID #60 cap 07/15/19 02/15/21 Rx metoprolol succinate 25 mg 25 mg PO DAILY #30 tablet 07/15/19 02/15/21 Rx tablet,extended release 24 hr rosuvastatin 20 mg tablet 20 mg PO DAILY #90 tablet 10/03/20 02/15/21 Rx Allergies Allergy/AdvReac Type Severity Reaction Status Date / Time No Known Allergies Allergy Verified 02/15/21 07:44 Vital Signs Vital Signs - 24 hr 02/15/21 07:45 Temperature 97.1 F L Pulse Rate 85 Respiratory Rate 16 Blood Pressure 123/83 Pulse Oximetry 99 Exam Const: General: comfortable and no acute distress HENMT: General nose exam: Normal nares present Eyes: General: appearance normal, both eyes and all related structures Neck: Neck: no JVD Resp: Auscultation: clear to auscultation bilaterally Cardio: Rate: regular rate Rhythm: re
[2021-02-15 08:43] VITALS: BP 122/84; PULSE 82; RESP 19; O2SAT 98
[2021-02-15 08:53] VITALS: BP 115/86; PULSE 87; RESP 18; O2SAT 95
[2021-02-15 09:03] VITALS: BP 120/87; PULSE 84; RESP 18; O2SAT 98
== END 2021-02-15 09:14 | disposition home or self-care (01) ==
PROVIDERS: PCP Family Medicine; Visit Provider Internal Medicine Gastroenterology
PROC: 0DJD8ZZ Inspection of Lower Intestinal Tract, Via Natural or Artificial Opening Endoscopic (ICD-10-PCS; CPT 45378; principal; 2021-02-15 08:30)
DX: Z12.11 Encounter for screening for malignant neoplasm of colon (principal); K57.30 Diverticulosis of large intestine without perforation or abscess without bleeding; K64.8 Other hemorrhoids; I10 Essential (primary) hypertension; E78.5 Hyperlipidemia, unspecified; E78.1 Pure hyperglyceridemia; I27.20 Pulmonary hypertension, unspecified; K76.0 Fatty (change of) liver, not elsewhere classified; E66.9 Obesity, unspecified; Z68.33 Body mass index [BMI] 33.0-33.9, adult
CPT/HCPCS: 45378; J2704; J7120

== ENCOUNTER 2021-07-23 10:25 | Emergency (ER) | payer BC, SELFPAY ==
[2021-07-23 10:29] VITALS: BP 129/89; PULSE 85; RESP 16; TEMP 36.3; O2SAT 98
--- NOTE | 2021-07-23 10:31 | ED.GENADULT ---
HPI - General Adult General Chief complaint: Medical Clearance Stated complaint: VOMITING/DIARRHEA Time Seen by Provider: 07/23/21 10:31 Source: patient Mode of arrival: ambulatory Limitations: no limitations History of Present Illness HPI narrative: 45-year-old male presents with complaint of nausea, vomiting, diarrhea, fatigue for 2 days has now resolved. States that his work requires a Covid PCR to return. He is eating and drinking normally. All systems reviewed and negative except as noted above. Related Data Allergies Allergy/AdvReac Type Severity Reaction Status Date / Time No Known Allergies Allergy Verified 02/15/21 07:44 Review of Systems Review of Systems: CONSTITUTIONAL: Denies fever, chills, or sweats. EYES: Denies visual changes, redness, or discharge. ENT: Denies rhinorrhea, congestion, sore throat, or otalgia. CARDIOVASCULAR: Denies chest pain, palpitations, or edema. RESPIRATORY: Denies cough or dyspnea. GASTROINTESTINAL: Denies abdominal pain. Reports nausea, vomiting, or diarrhea. GENITOURINARY: Denies dysuria or hematuria. SKIN: Denies rash or itching. MUSCULOSKELETAL: Denies back pain, joint pain, or myalgia. NEUROLOGIC: Denies headache, numbness, or weakness. PSYCHIATRIC: Denies anxiety or depression. All other systems reviewed are negative, except as documented in HPI. [facility] Past Medical History Medical History BMI 34.0-34.9,adult Fatty liver Hyperlipidemia Hypertension History with a negative exercise stress test in 2019. Hypertriglyceridemia Pulmonary hypertension Echocardiogram in 2019 showed mild pulmonary hypertension, EF height 69%, and mild LVH. Surgical History Surgical History History of laparoscopic cholecystectomy 02/2019 History of umbilical hernia repair umbilical hernia repair during laparoscopic cholecystectomy Family History Family History Father Hypertension Family history of elevated blood lipids Family history of diabetes mellitus in first degree relative Diabetes mellitus Family history of hypercholesterolemia Mother Family history of elevated blood lipids Family history of hypercholesterolemia COVID-19 Sibling No problems noted. 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 There is no relevant family history pertinent to the presenting complaint. Exam Narrative: GENERAL: This is a well-nourished, well-developed patient, in no apparent distress. HEAD: normocephalic, atraumatic. EYES: PERRL. Sclera clear/white. Vision is grossly intact. EARS: External ears normal NOSE: External nose normal NECK: Neck supple, non-tender without lymphadenopathy, masses or thyromegaly. CARDIOVASCULAR: Regular rate and rhythm without murmurs, gallops, or rubs. RESPIRATORY: Clear to auscultation. Breath sounds equal bilaterally. No wheezes, rales, or rhonchi. GASTROINTESTINAL: Abdomen soft, non-tender, nondistended. Bowel sounds are active. No hepato-splenomegaly, or palpable masses. No guarding. SKIN: warm, Dry, intact with no suspicious lesions or rash, good texture and turgor. NEURO: awake, alert, and or
[2021-07-24 10:10] LABS: SARS-CoV-2 RNA PCR Negative
== END 2021-07-23 10:46 | disposition home or self-care (01) ==
PROVIDERS: Emergency Provider Nurse Practitioner Family; PCP Family Medicine
DX: R11.2 Nausea with vomiting, unspecified (principal); Z20.822 Contact with and (suspected) exposure to COVID-19; K76.0 Fatty (change of) liver, not elsewhere classified; E78.5 Hyperlipidemia, unspecified
CPT/HCPCS: 99213; C9803; G0463; U0003; U0005

== ENCOUNTER 2022-01-18 13:39 | Emergency (ER) | payer BC, SELFPAY ==
--- NOTE | 2022-01-18 13:44 | ED.URI ---
HPI - URI/Sore Throat General Chief Complaint: Upper Respiratory Infection Stated Complaint: rosenda,cough Time Seen by Provider: 01/18/22 13:44 Source: patient Mode of arrival: ambulatory Limitations: no limitations History of Present Illness HPI Narrative: Florentin is a 46-year-old male patient presenting to the clinic today with complaints of cough and congestion x1 day. He reports he was mowing the lawn yesterday for his parents and was exposed to a lot of dust. He reports he became congested thereafter and has had a hacking cough with sinus pressure and congestion. He denies any fever or chills. He denies any exposure to anybody with strep, flu, or COVID. He denies any shortness of breath or chest pain. MD elicited complaint: cough and nasal congestion Related Data Allergies Allergy/AdvReac Type Severity Reaction Status Date / Time No Known Allergies Allergy Verified 01/18/22 13:47 Review of Systems Review of Systems: Pertinent positives per HPI. Patient denies any fever, chills, rash, headache, visual changes, dizziness, shortness of breath, chest pain, palpitations, nausea, vomiting, diarrhea, constipation, abdominal pain, or any urinary issues. [facility] Past Medical History Medical History BMI 34.0-34.9,adult Fatty liver Hyperlipidemia Hypertension History with a negative exercise stress test in 2019. Hypertriglyceridemia Pulmonary hypertension Echocardiogram in 2019 showed mild pulmonary hypertension, EF height 69%, and mild LVH. Surgical History Surgical History History of laparoscopic cholecystectomy 02/2019 History of umbilical hernia repair umbilical hernia repair during laparoscopic cholecystectomy Family History Family History Father Hypertension Family history of elevated blood lipids Family history of diabetes mellitus in first degree relative Diabetes mellitus Family history of hypercholesterolemia Mother Family history of elevated blood lipids Family history of hypercholesterolemia COVID-19 Sibling No problems noted. 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 There is no relevant family history pertinent to the patient complaint. Exam Narrative: General: Well-developed, overweight, in no apparent distress Head: Normocephalic, atraumatic Eyes: Pupils equally round and reactive to light bilaterally, EOM intact, sclera and conjunctive clear, no discharge, lids normal Ears: TMs intact, dull, opaque, mild bulge, ear canals clear, no drainage, grossly hearing normal. Nose: Nares patent, clear nasal discharge, moderate inflammation, no sinus tenderness. Mouth: Oral pharynx without lesions or masses, good dentition, MMM. Postnasal drip Neck: Supple, trachea midline, no enlargement of anterior or posterior cervical nodes, no thyroid masses or goiter palpable. Cardio: Regular rate and rhythm, s1 and s2 normal, no murmur appreciated. Resp: Clear to auscultation bilaterally, no rhonchi, rales, wheezing or rubs Course Course Emergency Course: Portions of this record may have been create
[2022-01-18 13:47] VITALS: BP 151/93; PULSE 100; RESP 16; TEMP 37.4; O2SAT 99
== END 2022-01-18 14:04 | disposition home or self-care (01) ==
PROVIDERS: Emergency Provider Nurse Practitioner Family; PCP Family Medicine
DX: R09.82 Postnasal drip (principal); J30.9 Allergic rhinitis, unspecified; H69.83 Other specified disorders of Eustachian tube, bilateral; K76.0 Fatty (change of) liver, not elsewhere classified; E78.5 Hyperlipidemia, unspecified
CPT/HCPCS: 99213; G0463

== ENCOUNTER 2022-04-25 10:08 | Emergency (ER) | payer BC, SELFPAY ==
--- NOTE | 2022-04-25 10:15 | ED.URI ---
HPI - URI/Sore Throat General Chief Complaint: Upper Respiratory Infection Stated Complaint: swollen lymph nodes, sore throat, sinus congestion Time Seen by Provider: 04/25/22 10:26 Source: patient and RN notes reviewed Mode of arrival: ambulatory Limitations: no limitations History of Present Illness HPI Narrative: 46-year-old male presents concern for swollen lymph nodes sore throat, sinus congestion for 1 week. He reports he has been taking DayQuil and NyQuil with mild relief. He denies fever. Reports body aches. He denies cough or shortness of breath. Denies known sick contact MD elicited complaint: sore throat Related Data Allergies Allergy/AdvReac Type Severity Reaction Status Date / Time augmentin AdvReac Mild Diarrhea Uncoded 01/31/22 09:32 Review of Systems Review of Systems: CONSTITUTIONAL: Reports malaise. Denies chills, sweats, or fever. EYES: Denies visual changes, redness, or discharge. ENT: Reports rhinorrhea, congestion, sore throat, swollen lymph nodes. Denies sinus pain, otalgia CARDIOVASCULAR: Denies chest pain, palpitations, or edema. RESPIRATORY: Denies cough. Denies dyspnea. GASTROINTESTINAL: Denies abdominal pain, nausea, vomiting, diarrhea SKIN: Denies rash or itching. MUSCULOSKELETAL: Reports myalgia. NEUROLOGIC: Denies headache. All systems reviewed & are unremarkable except as noted in HPI and below PMFSH Past Medical History Medical History BMI 34.0-34.9,adult Fatty liver Hyperlipidemia Hypertension History with a negative exercise stress test in 2019. Hypertriglyceridemia Pulmonary hypertension Echocardiogram in 2019 showed mild pulmonary hypertension, EF height 69%, and mild LVH. Surgical History Surgical History History of laparoscopic cholecystectomy 02/2019 History of umbilical hernia repair umbilical hernia repair during laparoscopic cholecystectomy Family History Family History Father Hypertension Family history of elevated blood lipids Family history of diabetes mellitus in first degree relative Diabetes mellitus Family history of hypercholesterolemia Mother Family history of elevated blood lipids Family history of hypercholesterolemia COVID-19 Sibling No problems noted. 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 There is no relevant family history pertinent to the presenting complaint Exam Narrative: GENERAL: Nontoxic-appearing and in no acute distress. HEAD: Normocephalic EYES: PERRLA, conjunctivae clear ENT: Nares clear, clear discharge. Mucous membranes moist. TM pearly llamas with dull light reflex on the right, sharp on the left; no tragal tenderness. Oropharynx mildly erythematous without lesions. Tonsils not enlarged and without exudate, no drooling, no hoarseness, no trismus, uvula midline. NECK: Supple. No lymphadenopathy CHEST: Clear to auscultation, breath sounds equal. No wheezing, rhonchi, rales, or stridor. No respiratory distress, speaks in full sentences. HEART: Regular rate and rhythm. No murmur heard. SKIN: Warm, dry, no rash. NEURO: Alert and orien
[2022-04-25 10:20] VITALS: BP 136/78; PULSE 92; RESP 16; TEMP 36.5; O2SAT 98
== END 2022-04-25 10:56 | disposition home or self-care (01) ==
PROVIDERS: Emergency Provider Nurse Practitioner; PCP Family Medicine
DX: J02.9 Acute pharyngitis, unspecified (principal); B34.9 Viral infection, unspecified; Z20.822 Contact with and (suspected) exposure to COVID-19; E78.5 Hyperlipidemia, unspecified; K76.0 Fatty (change of) liver, not elsewhere classified; E78.1 Pure hyperglyceridemia
CPT/HCPCS: 87081; 87426; 87804; 87880; 99213; C9803; G0463

== ENCOUNTER 2022-04-29 10:16 | Emergency (ER) | payer BC, SELFPAY ==
[2022-04-29 10:25] VITALS: BP 152/102; PULSE 91; RESP 16; TEMP 36.7; O2SAT 100
--- NOTE | 2022-04-29 10:44 | ED.GENADULT ---
HPI - General Adult General Chief complaint: Neck Pain/Injury Stated complaint: pinch nerve in neck Source: patient Mode of arrival: ambulatory Limitations: no limitations History of Present Illness HPI narrative: Patient presents for evaluation right-sided neck pain for the last 6 days. No injury immediately prior to the injury however he did hit his head on the door to a [employer] back in late March. No loss of consciousness at that time. He is wondering if that incident was contributory to his current pain. Pain has been constant, 10/10 in severity. Pain radiates down right upper extremity. He reports numbness and tingling in the right upper extremity. Tried taking some tizanidine that his mother had without significant improvement in his symptoms or after. Also tried taking tramadol. He did not have reduction of his pain but did note pruritus after taking the medication. He states he saw chiropractor multiple times between the date of symptom onset and today. He has had neck adjustments as well as electric stimulation. He had x-rays of his cervical spine performed today which were negative per his reports. No additional complaints or concerns. Related Data Allergies Allergy/AdvReac Type Severity Reaction Status Date / Time amoxicillin [From Augmentin] AdvReac Diarrhea Verified 04/29/22 10:35 clavulanic acid AdvReac Diarrhea Verified 04/29/22 10:35 [From Augmentin] Review of Systems Review of Systems: CONSTITUTIONAL: Denies fever, chills, or sweats. EYES: Denies visual changes, redness, or discharge. ENT: Denies rhinorrhea, congestion, sore throat, or otalgia. CARDIOVASCULAR: Denies chest pain, palpitations, or edema. RESPIRATORY: Denies cough or dyspnea. GASTROINTESTINAL: Denies abdominal pain, nausea, vomiting, or diarrhea. GENITOURINARY: Denies dysuria or hematuria. SKIN: Denies rash or itching. MUSCULOSKELETAL: Reports right neck pain with radiation into back and RUE NEUROLOGIC: Reports numbness and tingling in RUE. Denies headache, dizziness, or weakness. PSYCHIATRIC: Denies anxiety or depression. [facility] Past Medical History Medical History BMI 34.0-34.9,adult Fatty liver Hyperlipidemia Hypertension History with a negative exercise stress test in 2019. Hypertriglyceridemia Pulmonary hypertension Echocardiogram in 2019 showed mild pulmonary hypertension, EF height 69%, and mild LVH. Surgical History Surgical History History of laparoscopic cholecystectomy 02/2019 History of umbilical hernia repair umbilical hernia repair during laparoscopic cholecystectomy Family History Family History Father Hypertension Family history of elevated blood lipids Family history of diabetes mellitus in first degree relative Diabetes mellitus Family history of hypercholesterolemia Mother Family history of elevated blood lipids Family history of hypercholesterolemia COVID-19 Sibling No problems noted. 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 HEAD: Normocephalic, atraumatic. EYES: PERRLA and EOM
[2022-04-29] MEDS: methylPREDNISolone SOD SUCC 125 MG VIAL IM (10:56)
== END 2022-04-29 10:58 | disposition home or self-care (01) ==
PROVIDERS: Emergency Provider Nurse Practitioner; PCP Family Medicine
DX: M54.2 Cervicalgia (principal); E78.5 Hyperlipidemia, unspecified; I10 Essential (primary) hypertension; E78.1 Pure hyperglyceridemia; K76.0 Fatty (change of) liver, not elsewhere classified
CPT/HCPCS: 96372; 99213; G0463; J2930

== ENCOUNTER 2022-05-16 08:29 | Outpatient (CLI) | payer BC, SELFPAY ==
--- NOTE | ~2022-05-16 | MR_ITS ---
EXAMINATION: MR cervical spine wo con DATE: 05/16/2022 09:32 INDICATION: Neck pain with radiation after head injury TECHNIQUE: Magnetic resonance imaging (MRI) of the cervical spine was performed without intravenous c ontrast. Sequences included sagittal T2-weighted FSE, sagittal T2-weighted FS FSE, sagittal T1-weight ed FSE, axial MERGE, axial T2-weighted FS FSE and axial T2-weighted FSE PROPELLER. COMPARISON: Cervical spine radiographs dated 03/02/2018 FINDINGS: Mild reversal of the normal cervical lordosis in the mid to lower cervical spine. Vertebral body hei ghts are normal. Indeterminate 6 mm T1 hypointense lesion in the C5 vertebral body. Bone marrow signa l intensity is otherwise normal. Moderate disc height loss at C7-T1, mild to moderate disc height los s at C5-C6 and mild disc height loss at C3-C4, C4-C5 and C6-C7. Likely artifactual increased cord sig nal at the level of C6 which is seen only on a single axial T2* MERGE image with no correlate on the remaining axial or sagittal T2-weighted imaging. Otherwise normal cord signal throughout. Cervical so ft tissues are unremarkable. The following disc levels are specifically discussed: C2-C3: The disc does not extend beyond the endplate margin. There is mild bilateral uncovertebral rhonda nt osteoarthritis. There is mild bilateral facet joint osteoarthritis. There is no neural foraminal s tenosis. There is no central canal stenosis. C3-C4: Disc is mildly bulging. There is moderate bilateral uncovertebral joint osteoarthritis. There is mild bilateral facet joint osteoarthritis. There is mild bilateral neural foraminal stenosis. Ther e is mild central canal stenosis. C4-C5: Disc is mildly bulging. There is moderate bilateral uncovertebral joint osteoarthritis. There is mild bilateral facet joint osteoarthritis. There is mild right and moderate left neural foraminal stenosis. There is mild central canal stenosis. C5-C6: Eccentric to the left posterior disc osteophyte complex which results in mild central canal st enosis but with indention of the left ventral surface of the cord. There is moderate right and severe left uncovertebral joint osteoarthritis. There is mild bilateral facet joint osteoarthritis. There i s mild right and moderate left neural foraminal stenosis. C6-C7: Annular fissure with disc extrusion extending from foraminal zone to foraminal zone with disc material extending up to 4 mm cephalad to the level of the inferior endplate of C6. There is mild rig ht and moderate left uncovertebral joint osteoarthritis. There is mild bilateral facet joint osteoart hritis. There is moderate bilateral neural foraminal stenosis. There is mild central canal stenosis w ith flattening of the ventral surface of the cord. C7-T1: Disc is bulging with superimposed annular fissure and small left foraminal zone disc extrusion . There is moderate right and severe left uncovertebral joint osteoarthritis. There is moderate bilat eral facet joint osteoarthritis. There is moderate right and moderate to severe left neural foraminal stenosis. There is mild central canal stenosis. IMPRESSION: 1. Moderate cervical spondylosis. Reviewed, dictated and finalized at location A. PATIONAL PSYCHOLOGIST
== END 2022-05-16 08:30 | disposition home or self-care (01) ==
PROVIDERS: PCP Family Medicine; Visit Provider Nurse Practitioner Family
DX: M47.812 Spondylosis without myelopathy or radiculopathy, cervical region (principal); M25.511 Pain in right shoulder; R20.0 Anesthesia of skin; R20.2 Paresthesia of skin
CPT/HCPCS: 72141

== ENCOUNTER → 2022-06-27 12:35 | Outpatient (CLI) | payer BC, SELFPAY ==
--- NOTE | ~2022-06-27 | XR_ITS ---
Clinical Indication: Cough PA and lateral views of the chest: Comparison: None Findings: The lungs are clear, without evidence of focal consolidation or pleural effusion. Cardiome diastinal silhouette is within normal limits. Bones and soft tissues are unremarkable. Impression: Normal chest. Reviewed, dictated and finalized at location . Impression: Normal chest.
== END ==
PROVIDERS: PCP Family Medicine; Visit Provider Nurse Practitioner Family
DX: R05.9 Cough, unspecified (principal)
CPT/HCPCS: 71046

== ENCOUNTER 2022-07-08 10:37 | Emergency (ER) | payer BC, SELFPAY ==
--- NOTE | ~2022-07-08 | XR_ITS ---
Clinical Indication: Cough PA and lateral views of the chest: Comparison: 06/27/2022 Findings: The lungs are clear, without evidence of focal consolidation or pleural effusion. Cardiome diastinal silhouette is within normal limits. Bones and soft tissues are unremarkable. Impression: Normal chest. Reviewed, dictated and finalized at location . Impression: Normal chest.
[2022-07-08 10:46] VITALS: BP 135/93; PULSE 104; RESP 20; TEMP 36.6; O2SAT 96
--- NOTE | 2022-07-08 11:19 | ED.URI ---
HPI - URI/Sore Throat General Chief Complaint: Upper Respiratory Infection Stated Complaint: cough,shortness of breath Time Seen by Provider: 07/08/22 11:07 Source: patient Mode of arrival: ambulatory Limitations: no limitations History of Present Illness HPI Narrative: patient is a 38-year-old male that presents with cough for a month. Patient states he has been on 2 courses of antibiotics and 2 courses of steroids, last course finished on Thursday. Patient states symptoms improved with treatment in then worsen as soon as they are stopped. Patient states he has not had any congestion, sore throat since they resolved 2 weeks ago. Patient states he is using his albuterol inhaler that he was given and has started taking the allergy medication daily. Reports cough medicine with codeine has not helped at all. Related Data Allergies Allergy/AdvReac Type Severity Reaction Status Date / Time amoxicillin [From Augmentin] AdvReac Diarrhea Verified 07/08/22 11:20 clavulanic acid AdvReac Diarrhea Verified 07/08/22 11:20 [From Augmentin] Review of Systems Review of Systems: All systems reviewed & are unremarkable except as noted in HPI and below Constitutional: Constitutional: Denies body ache(s), Denies fever(s), Denies headache(s), Denies malaise and Denies weakness Eyes: Eyes: Denies loss of vision ENT: Denies otalgia, Reports headache(s), Denies nasal congestion, Denies sinus pain and Denies sore throat Cardiovascular: Cardiovascular: Denies chest pain, Denies irregular heart rhythm and Denies dyspnea Respiratory: Respiratory: Reports cough and Denies dyspnea Gastrointestinal: Gastrointestinal: Denies abdominal pain, Denies melena, Denies hematochezia, Denies diarrhea, Denies nausea and Denies vomiting Musculoskeletal: Musculoskeletal: Denies back pain, Denies myalgias and Denies arthralgias Integumentary/Breasts: Skin/Breast: Denies pruritus and Denies rash Neurologic: Denies headache(s), Denies loss of vision and Denies weakness Psychiatric: Psychiatric: Reports no additional psychiatric complaints PMFSH Past Medical History Medical History (Reviewed 06/16/22 @ 12:55 by Lidia Waller [facility]) Adult BMI 33.0-33.9 kg/sq m BMI 34.0-34.9,adult Fatty liver Hyperlipidemia Hypertension History with a negative exercise stress test in 2019. Hypertriglyceridemia Pulmonary hypertension Echocardiogram in 2019 showed mild pulmonary hypertension, EF height 69%, and mild LVH. Surgical History Surgical History History of laparoscopic cholecystectomy 02/2019 History of umbilical hernia repair umbilical hernia repair during laparoscopic cholecystectomy Family History Family History Father Hypertension Family history of elevated blood lipids Family history of diabetes mellitus in first degree relative Diabetes mellitus Family history of hypercholesterolemia Mother Family history of elevated blood lipids Family history of hypercholesterolemia COVID-19 Other Cerebrovascular accident Family history of cardiovascular disease Social History Social History (Updated 06/16/22 @ 12:56 by SUNDAY Chau) Smoking status: Never smoker Second hand tobacco smoke exposure: Yes Alcohol intake: current Drinks per week: 1 Alcohol use details: SOCIALLY Substance use: never Substance use type: does not use Lack of Transportation: No Lack of Food: Never True Current Housing: I Have Housing Concerned About Future Housing: No Difficulty Paying Gas/Electric Bills: No Difficulty Paying for Meds: No Currently Unemployed: No Education: Bachelor's Degree Difficulty w/ Childcare or Family Care: No Living arrangements: with family Additional living arrangements comments: With his partner 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
--- NOTE | 2022-07-08 11:28 | PC.NURSE ---
1120-- pt ambulatory to radiology.
== END 2022-07-08 12:00 | disposition home or self-care (01) ==
PROVIDERS: Emergency Provider Nurse Practitioner Family; PCP Family Medicine
DX: R05.9 Cough, unspecified (principal); E78.5 Hyperlipidemia, unspecified; I10 Essential (primary) hypertension
CPT/HCPCS: 71046; 99213; G0463

== ENCOUNTER 2022-07-14 11:55 | Outpatient (CLI) | payer BC, SELFPAY ==
[2022-07-14 12:56] LABS: Basophils Absolute Auto 0.1 K/mm3 (0.0-0.1); Basophils Percent Auto 1.2 % (0.2-1.2); Eosinophils Percent Auto 0.7 % (0-4.4); Hematocrit 42.3 % (42.0-52.0); Hemoglobin 14.3 g/dL (14.0-18.0); Immature Granulocyte Absolute 0.02 K/mm3 (0.00-0.031); Immature Granulocyte Percent A 0.3 % (0-0.5); Lymphocytes Absolute Auto 2.16 K/mm3 (0.9-3.2); Lymphocytes Percent Auto 36.1 % (18.3-44.2); Mean Corpuscular HGB Conc 33.8 g/dl (32-36); Mean Corpuscular Hemoglobin 30.3 pg (26-34); Mean Corpuscular Volume 89.6 fl (80-100); Mean Platelet Volume 9.6 fl (7.4-10.4); Monocytes Absolute Auto 0.4 K/mm3 (0.1-0.6); Monocytes Percent Auto 7.4 % (2.6-8.5); Neutrophils Absolute Auto 3.3 K/mm3 (1.3-6.7); Neutrophils Percent Auto 54.3 % (45.5-73.1); Platelet Count Result 254 k/mm3 (150-375); Red Blood Count 4.72 M/mm3 (4.6-6.20); Red Cell Distribution Width 12.8 % (11.5-14.5)
[2022-07-14 13:17] LABS: Alanine Aminotransferase 139 U/L (6-50); Albumin Level 4.6 g/dL (3.5-5.1); Alkaline Phosphatase 92 U/L (38-126); Anion Gap 9 mmol/L (8-16); Aspartate Amino Transferase 98 U/L (17-59); Bilirubin,Total 0.8 mg/dL (0.2-1.3); Blood Urea Nitrogen 13 mg/dL (9-20); Calcium 9.2 mg/dL (8.4-10.2); Carbon Dioxide 27 mmol/L (22-30); Chloride 98 mmol/L (98-107); Estimated Glomerular Filt Rate > 60; Glucose 163 mg/dL (65-110); Potassium 3.7 mmol/L (3.4-5.0); Sodium 134 mmol/L (137-145)
[2022-07-14 13:59] LABS: Atypical Lymphocytes Present; Platelet Estimate Adequate (Adequate); Schistocytes None Seen (NORMAL)
[2022-07-17 18:16] LABS: EBV Nuclear Ab Interpretation Past; EBV Virus Capsid Ag IgG Ab >750.00 U/mL (<18.00); EBV Virus Capsid Ag IgM Ab <36.00 U/mL (<36.00)
== END 2022-07-14 11:56 | disposition home or self-care (01) ==
LOC: ANHLAB 11:57
PROVIDERS: PCP Family Medicine; Visit Provider Nurse Practitioner Family
DX: R50.9 Fever, unspecified (principal); R05.9 Cough, unspecified
CPT/HCPCS: 36415; 80053; 85025; 86644; 86645; 86664; 86665

== ENCOUNTER 2022-07-16 16:46 | Outpatient (CLI) | payer BC, SELFPAY ==
--- NOTE | ~2022-07-16 | CT_ITS ---
EXAMINATION: CTA chest PE protocol DATE: 07/16/2022 17:26 INDICATION: PE protocol TECHNIQUE: Computed tomography angiography (CTA) of the chest was performed with 100 mL Omnipaque-350 intravenous contrast timed to evaluate the pulmonary arteries. Coronal maximum intensity projection 3D-reconstructions were created by the technologist. The dose-length product (DLP) was 649.00 mGy-cm. Automated exposure control and iterative reconstruction technique were employed. COMPARISON: X-ray chest 07/08/2022. FINDINGS: Lung parenchyma and airways: Clear. Pleura: Unremarkable. Thoracic inlet, axillae and chest wall: Bilateral hypodense thyroid nodules less than 1.5 cm in maxim um diameter, requiring no further workup. Thoracic aorta: Normal. Mediastinum: Normal. Heart and pericardium: Normal. Coronary artery calcifications: . Upper abdomen: No significant finding. Bones: No acute osseous finding. Pulmonary arteries: Study quality: Adequate. No pulmonary emboli detected. IMPRESSION: No CT evidence of acute pulmonary embolus. No acute process detected in the chest. Reviewed, dictated and finalized at location K. IMPRESSION: No CT evidence of acute pulmonary embolus. No acute process detected in the [address].
== END 2022-07-16 16:47 | disposition home or self-care (01) ==
LOC: ANHIMG 16:52
PROVIDERS: PCP Family Medicine; Visit Provider Nurse Practitioner Family
DX: R06.02 Shortness of breath (principal); R00.0 Tachycardia, unspecified
CPT/HCPCS: 71275; Q9967

== ENCOUNTER 2023-08-08 08:57 | Emergency (ER) | payer BC, SELFPAY ==
[2023-08-08 09:09] VITALS: BP 104/76; PULSE 91; RESP 16; TEMP 35.9; O2SAT 99
[2023-08-08 09:13] VITALS: TEMP 36.8
[2023-08-08 09:15] VITALS: TEMP 36.8
--- NOTE | 2023-08-08 09:15 | ED.GENADULT ---
HPI - General Adult General Chief complaint: Ear Stated complaint: Ear Pain Time Seen by Provider: 08/08/23 09:15 Source: patient Mode of arrival: ambulatory Limitations: no limitations History of Present Illness HPI narrative: 47-year-old male patient presents to the [facility] with complaints of left ear pain for the past 2 days. Patient states he does take Dayanara daily but states that the left ear pain has gotten worse and feels like he is underwater and feels muffled. Denies fevers body aches or chills at this time. Denies any recent airline travel. Related Data Home Medications Medication Instructions Recorded Confirmed fenofibrate 120 mg tablet 120 mg PO DAILY 07/16/22 08/08/23 Allergies Allergy/AdvReac Type Severity Reaction Status Date / Time amoxicillin [From Augmentin] AdvReac Diarrhea Verified 08/08/23 09:13 clavulanic acid AdvReac Diarrhea Verified 08/08/23 09:13 [From Augmentin] Review of Systems Review of Systems: CONSTITUTIONAL: Denies fever, chills, or sweats. EYES: Denies visual changes, redness, or discharge. ENT: Denies rhinorrhea, congestion, sore throat, Positive left otalgia. CARDIOVASCULAR: Denies chest pain, palpitations, or edema. RESPIRATORY: Denies cough or dyspnea. GASTROINTESTINAL: Denies abdominal pain, nausea, vomiting, or diarrhea. GENITOURINARY: Denies dysuria or hematuria. SKIN: Denies rash or itching. MUSCULOSKELETAL: Denies back pain, joint pain, or myalgia. NEUROLOGIC: Denies headache, numbness, or weakness. PSYCHIATRIC: Denies anxiety or depression. [facility] Past Medical History Medical History Adult BMI 33.0-33.9 kg/sq m Allergies BMI 32.0-32.9,adult BMI 34.0-34.9,adult Fatty liver Hyperlipidemia Hypertension History with a negative exercise stress test in 2019. Hypertriglyceridemia Pulmonary hypertension Echocardiogram in 2019 showed mild pulmonary hypertension, EF height 69%, and mild LVH. Surgical History Surgical History History of laparoscopic cholecystectomy 02/2019 History of umbilical hernia repair umbilical hernia repair during laparoscopic cholecystectomy Family History Family History Father Hypertension Family history of elevated blood lipids Family history of diabetes mellitus in first degree relative Diabetes mellitus Family history of hypercholesterolemia Mother Family history of elevated blood lipids Family history of hypercholesterolemia COVID-19 Other Cerebrovascular accident Family history of cardiovascular disease Social History Social History Smoking status: Never smoker Second hand tobacco smoke exposure: Yes Alcohol intake: current Drinks per week: 1 Alcohol use details: SOCIALLY Substance use: never Substance use type: does not use Lack of Transportation: No Lack of Food: Never True Current Housing: I Have Housing Concerned About Future Housing: No Difficulty Paying Gas/Electric Bills: No Difficulty Paying for Meds: No Currently Unemployed: No Education: Bachelor's Degree Difficulty w/ Childcare or Family Care: No Living arrangements: with family Additional living arrangements comments: With his partner Occupation/Education: occupation 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 There is no relevant family history pertinent to the presenting complaint. Exam Narrative: GENERAL: Well-appearing, well-nourished, and in no acute distress. HEAD: No
== END 2023-08-08 09:37 | disposition home or self-care (01) ==
PROVIDERS: Emergency Provider Nurse Practitioner Family; PCP Family Medicine
DX: H66.92 Otitis media, unspecified, left ear (principal); K76.0 Fatty (change of) liver, not elsewhere classified; E78.5 Hyperlipidemia, unspecified; I10 Essential (primary) hypertension; E78.1 Pure hyperglyceridemia; I27.20 Pulmonary hypertension, unspecified
CPT/HCPCS: 99213; G0463

== ENCOUNTER 2025-02-09 10:39 | Outpatient (CLI) | payer BC, SELFPAY ==
--- NOTE | ~2025-02-09 | XR_ITS ---
EXAMINATION: XR abdomen/kub 1V, 02/09/2025 10:44 CDT HISTORY: R30.0 - Dysuria COMPARISON: No comparisons available. Technique: 3 view. Findings: Bowel gas pattern unremarkable. No obstruction. No free air. No abnormal calcifications No acute osseous abnormality. Impression: 1. No acute abnormality. Reviewed, dictated and finalized at location P. Impression: 1. No acute abnormality.
== END 2025-02-09 10:40 | disposition home or self-care (01) ==
LOC: MICIMG 10:40
PROVIDERS: PCP Family Medicine; Visit Provider Physician Assistant Medical
DX: R30.0 Dysuria (principal); R31.9 Hematuria, unspecified
CPT/HCPCS: 74018